=== PATIENT | male | born 1975 | race Caucasian/White ===

== ENCOUNTER 2019-02-22 12:38 | Emergency (ER) | payer BC ==
[~2019-02-22] VITALS: Ht 180.3 cm; Wt 129.3 kg
[2019-02-22] MEDS ORDERED: CYMBALTA60 MG PO (12:49)
[2019-02-22] MEDS ORDERED: NORVASC10 MG PO (13:15)
[2019-02-22 14:30] VITALS: BP 139/88
== END 2019-02-22 14:30 | disposition home or self-care (01) ==
LOC: M.ERS 12:38
DX: R04.0 Epistaxis (principal); I10 Essential (primary) hypertension; Z88.8 Allergy status to other drugs, medicaments and biological substances